=== PATIENT | female | born 2000 | race Caucasian/White ===

== ENCOUNTER 2021-02-03 20:15 | Emergency (ER) | payer OTHER ==
[2021-02-03 20:23] VITALS: TEMP 98.3
[2021-02-03] MEDS ORDERED: SODIUM CHLORIDE 0.9% 1,000 ML IV STA (20:47)
[2021-02-03] MEDS ORDERED: ONDANSETRON 4 MG/2 ML VIAL IVP STA (20:47)
[2021-02-03] MEDS ORDERED: KETOROLAC 15 MG/ML 1 ML VIAL IVP STA (20:47)
[2021-02-03] MEDS ORDERED: PANTOPRAZOLE 40 MG/10 ML VIAL IVP STA (20:47)
--- NOTE | 2021-02-03 20:50 | ED ---
General Adult HPI - General Chief complaint: Chest Pain Stated complaint: Chest & stomach pain Time Seen by Provider: 02/03/21 20:33 Source: patient Mode of arrival: ambulatory Limitations: no limitations - History of Present Illness Initial comments: 20 -year-old female presents to the emergency department with a chief complaint of abdominal pain. Patient reports the pain started about 4 hours prior to arrival and is located in the epigastric region as well as the right upper quadrant. She does report some pain going near the lower sternal region as well. Patient reports some nausea but no vomiting. Patient reports this is an ongoing issue for the past year and she's had an ultrasound done several months ago with possible hepatic steatosis. Patient also reports there has been a concern for a gallbladder related problems but no acute findings. Patient states she is working on an appointment with Dr. Johnson. Reports the pain is not typically postprandial, however today it was. Denies any possibility of . Denies any fevers or chills. Denies any shortness of breath. Denies any urinary or vaginal symptoms. - Related Data Home Medications Medication Instructions Recorded Confirmed Sertraline [Zoloft] 50 mg PO DAILY 02/03/21 02/03/21 Unknown Control 1 tab PO DAILY 02/03/21 02/03/21 Allergies Allergy/AdvReac Type Severity Reaction Status Date / Time No Known Allergies Allergy Verified 02/03/21 21:09 Review of Systems ROS Statement: Those systems with pertinent positive or pertinent negative responses have been documented in the HPI. ROS Other: All systems not noted in ROS Statement are negative. Past Medical History Past Medical History: No Reported History History of Any Multi-Drug Resistant Organisms: None Reported Past Surgical History: Adenoidectomy Past Psychological History: Anxiety Smoking Status: Never smoker Past Alcohol Use History: None Reported Past Drug Use History: None Reported General Exam Limitations: no limitations General appearance: alert, in no apparent distress Head exam: Present: atraumatic, normocephalic, normal inspection Eye exam: Present: normal appearance, PERRL, EOMI Pupils: Present: normal accommodation ENT exam: Present: normal exam, normal oropharynx, mucous membranes moist, TM's normal bilaterally, normal external ear exam Neck exam: Present: normal inspection, full ROM. Absent: tenderness Respiratory exam: Present: normal lung sounds bilaterally, chest wall tenderness ( lower sternal tenderness). Absent: respiratory distress, wheezes, rales, rhonchi, stridor Cardiovascular Exam: Present: regular rate, normal rhythm, normal heart sounds GI/Abdominal exam: Present: soft, tenderness (Epigastric and right upper quadrant tenderness. Positive Fiore sign.). Absent: distended, guarding, rebound, rigid Extremities exam: Present: normal inspection, full ROM, normal capillary refill. Absent: tenderness, pedal edema, joint swelling Back exam: Present: normal inspection, full ROM. Absent: tenderness, CVA tend erness (R), CVA tenderness (L), muscle spasm, paraspinal tenderness, vertebral tenderness Neurological exam: Present: alert, oriented X3 Psychiatric exam: Present: normal affect, normal mood Skin exam: Present: warm, dry, intact, normal color Course Vital Signs 02/03/21 02/03/21 20:19 23:24 Temperature 98.3 F Pulse Rate 65 71 Respiratory 18 16 Rate Blood Pressure 122/91 116/87 O2 Sat by Pulse 100 100 Oximetry EKG Findings - EKG Comments: EKG Findings:: Sinus arrhythmia without acute ischemic changes. Ventricular rate 65, W[place] 138, QRS 84, QTC 418 Medical Decision Making - Medical Decision Making 20-year-old female presents to emergency Department with chief complaint of abdominal pain. On physical examination, she has epigastric and right upper quadrant tenderness. Positive Fiore sign. Laboratory work reveals mild leukocytosis of 11.4 likely secondary to vomiting. Rest of laboratory work is unremarkable. Right upper quadrant ultrasound is unremarkable. Patient was given IV fluids, antiemetics, Protonix and Toradol. On reevaluation, patient reports improvement of symptoms. This appears to be ongoing issue for the past year and she has already appointment scheduled with Dr. Swartz. I suspect biliary colic to the cause of her symptoms. Advised her to avoid eating fatty foods. Strict return parameters were thoroughly discussed the patient was understanding and agreeable. Case discussed with - Lab Data Result diagrams: 02/03/21 21:07 02/03/21 21: Lab Results 02/03/21 02/03/21 02/03/21 Range/Units 21: 21: 21: WBC 11.4 H (4.0-11.0) k/uL RBC 4.99 (3.80-5.40) m/uL Hgb 14.3 (11.4-16.0) gm/dL Hct 43.6 (34.0-46.0) % MCV 87.5 (80.0-100.0) fL MCH 28.7 (25.0-35.0) pg MCHC 32.8 (31.0-37.0) g/dL RDW 12.7 (11.5-15.5) % Plt Count 235 (150-450) k/uL MPV 7.2 Neutrophils % 53 % Lymphocytes % 40 % Monocytes % 4 % Eosinophils % 1 % Basophils % 0 % Neutrophils # 6.0 (1.3-7.7) k/uL Lymphocytes # 4.6 (1.0-4.8) k/uL Monocytes # 0.5 (0-1.0) k/uL Eosinophils # 0.1 (0-0.7) k/uL Basophils # 0.0 (0-0.2) k/uL Sodium (137-145) mmol/L Potassium (3.5-5.1) mmol/L Chloride (98-107) mmol/L Carbon Dioxide (22-30) mmol/L Anion Gap mmol/L BUN (7-17) mg/dL Creatinine (0.52-1.04) mg/dL Est GFR (CKD-EPI)AfAm (>60 ml/min/1.73 sqM) Est GFR (CKD-EPI)NonAf (>60 ml/min/1.73 sqM) Glucose (74-99) mg/dL Calcium (8.4-10.2) mg/dL Total Bilirubin (0.2-1.3) mg/dL AST (14-36) U/L ALT (4-34) U/L Alkaline Phosphatase (38-126) U/L Total Protein (6.3-8.2) g/dL Albumin (3.5-5.0) g/dL Amylase (30-110) U/L Lipase (23-300) U/L Urine Color Colorless Urine Appearance Clear (Clear) Urine pH 7.5 (5.0-8.0) Ur Specific [place] 1.007 (1.001-1.035) Urine Protein Negative (Negative) Urine Glucose (UA) Negative (Negative) Urine Ketones Negative (Negative) Urine Blood Negative (Negative) Urine Nitrite Negative (Negative) Urine Bilirubin Negative (Negative) Urine Urobilinogen <2.0 (<2.0) mg/dL Ur Leukocyte Esterase Negative (Negative) Urine HCG, Qual Not Detected (Not Detectd) 02/03/21 Range/Units 21:07 WBC (4.0-11.0) k/uL RBC (3.80-5.40) m/uL Hgb (11.4-16.0) gm/dL Hct (34.0-46.0) % MCV (80.0-100.0) fL MCH (25.0-35.0) pg MCHC (31.0-37.0) g/dL RDW (11.5-15.5) % Plt Count (150-450) k/uL MPV Neutrophils % % Lymphocytes % % Monocytes % % Eosinophils % % Basophils % % Neutrophils # (1.3-7.7) k/uL Lymphocytes # (1.0-4.8) k/uL Monocytes # (0-1.0) k/uL Eosinophils # (0-0.7) k/uL Basophils # (0-0.2) k/uL Sodium 139 (137-145) mmol/L Potassium 4.1 (3.5-5.1) mmol/L Chloride 105 (98-107) mmol/L Carbon Dioxide 26 (22-30) mmol/L Anion Gap 8 mmol/L BUN 15 (7-17) mg/dL Creatinine 1.04 (0.52-1.04) mg/dL Est GFR (CKD-EPI)AfAm 90 (>60 ml/min/1.73 sqM) Est GFR (CKD-EPI)NonAf 78 (>60 ml/min/1.73 sqM) Glucose 85 (74-99) mg/dL Calcium 9.8 (8.4-10.2) mg/dL Total Bilirubin 0.4 (0.2-1.3) mg/dL AST 31 (14-36) U/L ALT 23 (4-34) U/L Alkaline Phosphatase 47 (38-126) U/L Total Protein 8.1 (6.3-8.2) g/dL Albumin 4.7 (3.5-5.0) g/dL Amylase 118 H (30-110) U/L Lipase 209 (23-300) U/L Urine Color Urine Appearance (Clear) Urine pH (5.0-8.0) Ur Specific [place] (1.001-1.035) Urine Protein (Negative) Urine Glucose (UA) (Negative) Urine Ketones (Negative) Urine Blood (Negative) Urine Nitrite (Negative) Urine Bilirubin (Negative) Urine Urobilinogen (<2.0) mg/dL Ur Leukocyte Esterase (Negative) Urine HCG, Qual (Not Detectd) Disposition Clinical Impression: Biliary colic, Nausea vomiting and diarrhea Disposition: HOME SELF-CARE Condition: Stable Instructions (If sedation given, give patient instructions): Biliary Colic (ED) Additional Instructions: Please return to the Emergency Department if symptoms worsen or any other concerns. Is patient prescribed a controlled substance at d/c from ED?: No Referrals: Nonstaff,Physician [Primary Care Provider] - 1-2 days Time of Disposition: 23:01
[2021-02-03 21:27] LABS: Appearance,Urine Clear (Clear); Bilirubin,Urine Negative (Negative); Blood,Urine Negative (Negative); Color,Urine Colorless; Glucose,Urine (UA) Negative (Negative); Ketones,Urine Negative (Negative); Leukocyte Esterase,Urine Negative (Negative); Nitrite,Urine Negative (Negative); PH, Urine 7.5 (5.0-8.0); Protein,Urine Negative (Negative); Specific Gravity,Urine 1.007 (1.001-1.035); Urobilinogen,Urine <2.0 mg/dL (<2.0)
[2021-02-03 21:39] LABS: Basophils % (A) 0 %; Eosinophils # (A) 0.1 k/uL (0-0.7); Eosinophils % (A) 1 %; HCT 43.6 % (34.0-46.0); HGB 14.3 gm/dL (11.4-16.0); Lymphocytes # (A) 4.6 k/uL (1.0-4.8); Lymphocytes % (A) 40 %; MCH 28.7 pg (25.0-35.0); MCHC 32.8 g/dL (31.0-37.0); MCV 87.5 fL (80.0-100.0); Mean Platelet Volume 7.2; Monocytes # (A) 0.5 k/uL (0-1.0); Monocytes % (A) 4 %; Neutrophils % (A) 53 %; Platelet Count 235 k/uL (150-450); RBC 4.99 m/uL (3.80-5.40); RDW 12.7 % (11.5-15.5); WBC 11.4 k/uL (4.0-11.0)
[2021-02-03 21:43] LABS: Albumin 4.7 g/dL (3.5-5.0); Calcium 9.8 mg/dL (8.4-10.2); Potassium 4.1 mmol/L (3.5-5.1); Total Bilirubin 0.4 mg/dL (0.2-1.3); Total Protein 8.1 g/dL (6.3-8.2)
--- NOTE | 2021-02-03 22:31 | US ---
EXAMINATION TYPE: US gallbladder DATE OF EXAM: 02/03/2021 COMPARISON: NONE CLINICAL HISTORY: +fiore. +Fiore's sign per order. EXAM MEASUREMENTS: Liver Length: 17.4 cm Gallbladder Wall: 0.16 cm CBD: 0.34 cm Right Kidney: 10.1 x 4.6 x 4.1 cm Limited due to overlying bowel gas. Pancreas: Appears wnl. Liver: Measures upper limits of normal. Appears coarse and to have a slightly increased echogenicity. Gallbladder: Appears anechoic. Evidence for sonographic Fiore's sign: Patient feels sensitivity over the RUQ. CBD: Portions seen appear wnl. Right Kidney: No hydronephrosis or masses seen IMPRESSION: Negative exam. No gallstones or dilated ducts. No free fluid.
[2021-02-03] MEDS ORDERED: ACET/COD 300 MG/30 MG STARTER PACK 6 TAB BTL PO STA (23:06)
[2021-02-03 23:25] VITALS: BP 116/87; PULSE 71; RESP 16
== END 2021-02-03 23:25 | disposition home or self-care (01) ==
LOC: EC 20:15
DX: K80.50 Calculus of bile duct without cholangitis or cholecystitis without obstruction (principal); R19.7 Diarrhea, unspecified
CPT/HCPCS: 36415; 93005; 80053; 82150; 83690; 85025; 81003; 81025; 76705; 99284; 96374; 96375 ×2; J2405; J1885; C9113

== ENCOUNTER → 2021-02-17 | Outpatient (CLI) | payer OTHER ==
[2021-02-17 21:27] LABS: Gliadin AB IgA, Deaminated NEGATIVE (NEGATIVE); Gliadin AB IgG, Deaminated NEGATIVE (NEGATIVE)
== END | disposition home or self-care (01) ==
LOC: LABWHC1 14:01
PROVIDERS: ATTEND Nurse Practitioner
DX: R14.0 Abdominal distension (gaseous) (principal)
CPT/HCPCS: 36415; 83516

== ENCOUNTER 2021-05-12 18:53 | Emergency (ER) | payer OTHER ==
[2021-05-12] MEDS ORDERED: diphenhydrAMINE 50 MG CAP PO STA (19:48)
[2021-05-12] MEDS ORDERED: methylPREDNISolone SOD SUCCI 125 MG/2 ML VIAL IM ONE (19:48)
--- NOTE | 2021-05-12 20:41 | ED ---
Skin/Abscess/FB HPI - General Chief complaint: Skin/Abscess/Foreign Body Stated complaint: Hives Time Seen by Provider: 05/12/21 19:36 Source: patient, RN notes reviewed Mode of arrival: ambulatory Limitations: no limitations - History of Present Illness Initial comments: Patient is a 20-year-old female that presents to emergency room complaining of bilateral posterior knee rash. She denied any contact with new environmental substances or detergent or household items. She notes that the rash is just itchy. She notes is not painful. She took Benadryl around 11 AM this morning and has not taken any since then. Patient was a well-appearing 20-year-old female in no apparent distress or pain. She denied any chest pain first breath headache nausea vomiting diarrhea constipation fever fatigue chills difficulty breathing or swallowing. - Related Data Home Medications Medication Instructions Recorded Confirmed Sertraline [Zoloft] 50 mg PO DAILY 02/03/21 02/03/21 Unknown Control 1 tab PO DAILY 02/03/21 02/03/21 Previous Rx's Medication Instructions Recorded predniSONE 50 mg PO DAILY #5 tab 05/12/21 Allergies Allergy/AdvReac Type Severity Reaction Status Date / Time No Known Allergies Allergy Verified 05/12/21 19:23 Review of Systems ROS Statement: Those systems with pertinent positive or pertinent negative responses have been documented in the HPI. ROS Other: All systems not noted in ROS Statement are negative. Past Medical History Past Medical History: No Reported History History of Any Multi-Drug Resistant Organisms: None Reported Past Surgical History: Adenoidectomy Past Psychological History: Anxiety Smoking Status: Never smoker Past Alcohol Use History: None Reported Past Drug Use History: None Reported General Exam Limitations: no limitations General appearance: alert, in no apparent distress Head exam: Present: atraumatic, normocephalic, normal inspection Eye exam: Present: normal appearance, PERRL, EOMI. Absent: scleral icterus, conjunctival injection, periorbital swelling Neck exam: Present: normal inspection Respiratory exam: Present: normal lung sounds bilaterally. Absent: respiratory distress, wheezes, rales, rhonchi, stridor Cardiovascular Exam: Present: regular rate, normal rhythm, normal heart sounds. Absent: systolic murmur, diastolic murmur, rubs, gallop, clicks GI/Abdominal exam: Present: soft, normal bowel sounds. Absent: distended, tenderness, guarding, rebound, rigid Extremities exam: Present: normal inspection, full ROM, normal capillary refill. Absent: tenderness, pedal edema, joint swelling, calf tenderness Neurological exam: Present: alert, oriented X3 Psychiatric exam: Present: normal affect, normal mood Skin exam: Present: warm, dry, intact, normal color, rash (Bilateral posterior knee, minimally erythematous.) Course Vital Signs 05/12/21 19:21 Temperature 98.3 F Pulse Rate 88 Respiratory 18 Rate Blood Pressure 103/68 O2 Sat by Pulse 98 Oximetry Medical Decision Making - Medical Decision Making 20-year-old female complaining of bilateral posterior knee rash. 125 mg of Solu-Medrol, 50 g Benadryl ordered. Given patient's clinical symptoms patient mostly has a contact dermatitis. Case discussed with Dr. John, patient discharge home. Disposition Clinical Impression: Contact dermatitis Disposition: HOME SELF-CARE Condition: Stable Instructions (If sedation given, give patient instructions): Contact Dermatitis (ED) Additional Instructions: Please return to the Emergency Department if symptoms worsen or any other concerns. Follow-up with primary care in 20 days. Take steroids as prescribed. Can use hydrocortisone cream as needed. Is patient prescribed a controlled substance at d/c from ED?: No Referrals: Nonstaff,Physician [Primary Care Provider] - 1-2 days Time of Disposition: 20:41
[2021-05-12 21:03] VITALS: BP 100/73; PULSE 82; RESP 16; TEMP 98.2
== END 2021-05-12 21:03 | disposition home or self-care (01) ==
LOC: EC 18:53
DX: L25.9 Unspecified contact dermatitis, unspecified cause (principal); F41.9 Anxiety disorder, unspecified; Z90.89 Acquired absence of other organs
CPT/HCPCS: 99282; 96372; J2930